=== PATIENT | male | born 2000 | race Hispanic/Latino ===

== ENCOUNTER 2021-04-09 10:25 | Emergency (ER) | payer OTHER ==
[2021-04-09 20:16] LABS: SARS-CoV-2 PCR by NAA DETECTED (NotDetected)
== END 2021-04-09 12:49 | disposition home or self-care (01) ==
LOC: ERS 10:25
DX: U07.1 COVID-19 (principal); F17.210 Nicotine dependence, cigarettes, uncomplicated
CPT/HCPCS: 99284; U0003; U0005